=== PATIENT | female | born 1980 | race Caucasian/White ===

== ENCOUNTER 2018-07-09 07:39 | Inpatient (IN) | payer MEDICAID ==
[~2018-07-09] VITALS: Ht 165.1 cm; Wt 90.5 kg
[2018-07-09] VITALS (19 sets, daily range): BP systolic 100–131; BP diastolic 55–89; PULSE 64–86; TEMP 97.7–98.8
[2018-07-09] MEDS ORDERED: VALTREX 50500 MG/TAB PO (09:32)
[2018-07-09] MEDS ORDERED: PRENATAL MVI (09:33)
[2018-07-09 10:12] LABS: BASO % 0.3 % (0.0-2.0); EOS # 0.2 (0.0-0.7); EOS % 2.7 % (0-4.0); GRAN # 4.5 (1.4-6.5); GRAN % 68.3 % (42.2-75.2); HEMATOCRIT 38.7 % (37.0-47.0); HEMOGLOBIN 13.2 g/dl (12.5-16.0); LYMPH # 1.6 (1.2-3.4); LYMPH % 23.7 % (20.0-51.0); MEAN CELL VOLUME 95 fl (80.0-100.0); MEAN CORPUSCULAR HEMOGLOBIN 32 pg (27.0-31.0); MEAN CORPUSCULAR HGB CONC 34 g/dl (33.0-37.0); MEAN PLATELET VOLUME 11.5 fl (7.4-10.4); MONO # 0.3 (0.1-0.6); MONO % 4.2 % (1.7-9.3); PLATELET COUNT 177 K/mm3 (130-400); RED BLOOD COUNT 4.07 M/mm3 (4.10-5.30); REDCELL DISTRIBUTION WIDTH-CV 14.1 % (11.5-14.5)
[2018-07-09] MEDS ORDERED: MOTRIN 800800 MG/TAB PO (18:56)
[2018-07-09] MEDS ORDERED: PERCOCET 325 MG1 TA2 PO (18:57)
[2018-07-10 04:30] VITALS: BP 101/55; PULSE 78; TEMP 98.6
[2018-07-10 09:00] VITALS: BP 88/47; PULSE 85; TEMP 98.4
[2018-07-10 12:50] VITALS: BP 111/62; PULSE 81; TEMP 98.5
[2018-07-10 16:25] VITALS: BP 108/60; PULSE 86; TEMP 98.6
[2018-07-10 22:40] VITALS: BP 104/63; PULSE 70; TEMP 98.2
[2018-07-11 08:40] VITALS: BP 116/72; PULSE 80; TEMP 98.2
== END 2018-07-11 17:30 | disposition home or self-care (01) | DRG 806 ==
LOC: LDR 07:39 → OB 07:39 → LDR 13:50 → OB 07-11 17:30
PROVIDERS: Obstetrics & Gynecology
PROC: 10E0XZZ Delivery of Products of Conception, External Approach (ICD-10-PCS; principal; 2018-07-09)
PROC: 10907ZC Drainage of Amniotic Fluid, Therapeutic from Products of Conception, Via Natural or Artificial Opening (ICD-10-PCS; 2018-07-09)
PROC: 3E033VJ Introduction of Other Hormone into Peripheral Vein, Percutaneous Approach (ICD-10-PCS; 2018-07-09)
PROC: 0HQ9XZZ Repair Perineum Skin, External Approach (ICD-10-PCS; 2018-07-09)
DX: O99.02 Anemia complicating childbirth (principal); O98.52 Other viral diseases complicating childbirth; Z37.0 Single live birth; O98.32 Other infections with a predominantly sexual mode of transmission complicating childbirth; D64.9 Anemia, unspecified; O99.824 Streptococcus B carrier state complicating childbirth; Z3A.39 39 weeks gestation of pregnancy; O70.0 First degree perineal laceration during delivery; K21.9 Gastro-esophageal reflux disease without esophagitis; B00.1 Herpesviral vesicular dermatitis
CPT/HCPCS: J2540; J2590; J7120